=== PATIENT | female | born 1965 | race Caucasian/White ===

== ENCOUNTER → 2017-05-05 | Outpatient (CLI) | payer OTHER ==
--- NOTE | ~2017-05-05 | XA166 ---
[facility] A Service of [facility] RADIOLOGY TEXT RESULTS PATIENT: LEEROY MADISON LOCATION: CIVR : 63 UNIT #: [id number] AGE: [address]: Vimal Guidry MD SEX: F ORDER DR: [id number] [facility] [address] [place], [place] [address] [id number] O MR#: [id number] Acc #: [id number] NAME: LEEROY MADISON : 1965 SEX: F STUDY DATE/TIME: 05/05/2017 13:21 UNIT: [facility] ROOM: STUDY DESCRIPTION: XA PICC Line Placement WO Port Attending Physician: Vimal Guidry M.D. Referring Physician: Vimal Guidry M.D. Ordering Physician: Vimal Guidry M.D. Primary Care Physician: Vimal Guidry M.D. MEDICAL IMAGING REPORT This report is preliminary unless electronic signature is present EXAM Right-sided PICC line placement INDICATIONS Need for IV access in a patient with history of Crohn disease. Patient underwent attempted PICC line placement on May 05, 2017 and was noted to have an occlusion of a left axillary vein with multiple collaterals seen. She had had a preexisting PICC line which had gotten infected on the right and we deferred on placement of a right-sided PICC line until that area had healed. PRE-PROCEDURE The procedure was explained to the patient and/or patient key account representative including risks, benefits, potential complications and potential for alternative forms of treatment. Informed consent was obtained, and prior to initiating the procedure a formal timeout procedure was performed. PROCEDURE Using full standard sterile barrier technique, including caps, gowns, gloves, masks, as well as sterile skin preparation and standard sterile draping, the right arm was prepped and draped in the usual fashion, and real-time sterile ultrasound guidance was used to localize an arm vein and to confirm vessel patency. A hard copy ultrasound image was recorded. After local anesthesia with 1% Xylocaine, the vein was punctured using real-time sterile ultrasound guidance, and an 0.018 guidewire was advanced into the superior vena cava, using fluoroscopic guidance. A 4-Zambian single-lumen PICC was then measured and deployed with the tip positioned in the superior vena cava. The position of the line was documented with a radiographic image. The line was secured in place with an adhesive dressing and an antibiotic patch was applied. Total fluoro time was 0.6 minutes. AK was 6 mGy. [facility] A Service of [facility] RADIOLOGY TEXT RESULTS PATIENT: LEEROY AMDISON LOCATION: [facility] : 63 UNIT #: [id number] AGE: [address]: Vimal Guidry MD SEX: F ORDER DR: LUISA Successful placement of a 4-Zambian single-lumen PowerPICC via the right arm under ultrasound and fluoroscopic guidance. The tip of the PICC is in good position in the superior vena cava. Dictated by... Shanti Hay M.D. THIS IS AN ELECTRONICALLY VERIFIED REPORT Shanti Hay M.D. at 05/08/2017 4:54 PM AFF/psc TD: 05/08/2017 15:35 JOB #: [id number] MEDICAL IMAGING REPORT Page 1 of 1 COPY
== END | disposition home or self-care (01) ==
LOC: CIVR 12:49
PROC: 02HV33Z Insertion of Infusion Device into Superior Vena Cava, Percutaneous Approach (ICD-10-PCS; principal; 2017-05-05)
DX: K50.918 Crohn's disease, unspecified, with other complication (principal); D50.9 Iron deficiency anemia, unspecified; K90.9 Intestinal malabsorption, unspecified; K31.6 Fistula of stomach and duodenum; I82.A12 Acute embolism and thrombosis of left axillary vein; Z98.890 Other specified postprocedural states; Z88.8 Allergy status to other drugs, medicaments and biological substances
CPT/HCPCS: 75820; 76937; 77001; C1725; C1751; J1642; Q9967